=== PATIENT | female | born 2005 | race Caucasian/White ===

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

== ENCOUNTER 2024-04-18 03:36 | Emergency (ER) | payer OTHER ==
[2024-04-18 04:00] VITALS: RESP 18; TEMP 98.7; O2SAT 98
[2024-04-18 04:15] LABS: Appearance Clear (Clear); Bacteria Rare /HPF (None Seen); Bilirubin Negative (Negative); Blood Negative (Negative); Epithelial Cells Rare /HPF (None Seen); Glucose, Urine Negative (Negative); Hyaline Casts NONE SEEN /LPF (0-2); Ketones Negative (Negative); Leukocyte Esterase Negative (Negative); Nitrite Negative (Negative); Ph 6.5 (4.6-8.0); Protein,Urine Dip Negative (Negative); RBC 0-2 /HPF (0-5)
[2024-04-18 04:16] LABS: ADD URINE CULTURE? NO (NO)
--- NOTE | 2024-04-18 04:23 | ERPHSYRPT ---
- History of Present Illness Time Seen by Provider: 04/18/24 04:15 Source: patient Exam Limitations: no limitations Patient Subjective Stated Complaint: low intermittent abd cramping with vomiting, pt states that she is having some vaginal spotting that started yesterday, pt states she is on the depo shot and is late to administer it. pt has hx of 3 miscarriages. Triage Nursing Assessment: pt ambulatory to bed by self, pt alert and oriented x3, skin pwd, pt c/o low intermittent abd cramping with some vomiting, pt c/o some vaginal spotting that started yesterday, unk on last BM, pt states she vomited once yesterday and twice the day before, pt has hx of eating disorder and 3 miscarriages. Physician History: The patient, with a history of eating disorder and on Depo-Provera, presents with a week-long history of gastrointestinal symptoms and vaginal spotting. They report an inability to eat, accompanied by vomiting. Concurrently, they have been experiencing abdominal pain, described as similar to contractions but less severe. The patient also reports missing a Depo-Provera shot and has been spotting since. Their last menstrual period was approximately four months ago, which lasted two weeks, attributed to a late Depo-Provera shot. The last Depo-Provera shot was received on December 29. In an attempt to manage their eating difficulties, the patient has been taking Famotidine, which they feel is weak. They express a desire for a stronger medication to help with their eating difficulties. Timing/Duration: yesterday Severity: mild Modifying Factors: Improves With: nothing. Worsens With: eating Associated Symptoms: nausea, vomiting, abdominal pain, heartburn, loss of appetite, No shortness of breath, No diaphoresis, No cough, No chest pain, No fever, No headaches, No malaise Allergies/Adverse Reactions: No Known Drug Allergies Allergy (Verified 04/18/24 03:49) Home Medications: Famotidine [Pepcid] 40 mg PO DAILY 04/18/24 [History] Medroxyprogesterone Acetate 150 mg SQ UD 04/18/24 [History] Hx Tetanus, Diphtheria Vaccination/Date Given: Yes Hx Influenza Vaccination/Date Given: No Hx Pneumococcal Vaccination/Date Given: No Travel Risk - International Travel Have you traveled outside of the country in past 3 weeks: No - Emerging Infectious Disease Are you exhibiting symptoms associated with any current EIDs: Yes Symptoms: Abdominal Pain, Vomitting - Review of Systems All Other Systems: Reviewed and Negative - Past Medical History Pertinent Past Medical History: Yes Neurological History: Migraines ENT History: No Pertinent History Cardiac History: No Pertinent History Respiratory History: No Pertinent History Endocrine Medical History: No Pertinent History Musculoskeletal History: No Pertinent History GI Medical History: No Pertinent History History: No Pertinent History Psycho-Social History: Eating Disorders Female Reproductive Disorders: No Pertinent History Other Medical History: 3 miscarriages - Past Surgical History Past Surgical History: No Neuro Surgical History: No Pertinent History Cardiac: No Pertinent History Respiratory: No Pertinent History Gastrointestinal: No Pertinent History Genitourinary: No Pertinent History Musculoskeletal: No Pertinent History Female Surgical History: No Pertinent History Significant Family History: no pertinent family hx - Female History Hx Last Menstrual Period: unk Hx Now: No - Social History Smoking Status: Never smoker Exposure to second hand smoke: No Drug Use: none Patient Lives Alone: No - Social Determinants of Health Will the patient participate in the screening: Yes Do you worry about a steady place to live?: No Do you have any problems with any of the following?: No known problems In the past 12 months,have you had to go without utilities?: No Transportation Issues: No Has anyone in your support network made you feel unsafe?: No Have you or anyone in your house had to go without enough: No - Nursing Vital Signs Nursing Vital Signs: Initial Vital Signs Temperature 98.7 F 04/18/24 03:51 Pulse Rate 92 H 04/18/24 03:51 Respiratory Rate 18 04/18/24 03:51 Blood Pressure 119/79 04/18/24 03:51 O2 Sat by Pulse Oximetry 98 04/18/24 03:51 Pain Scale Pain Intensity 5 - Physical Exam General Appearance: no apparent distress, thin Eye Exam: eyes nml inspection Ears, Nose, Throat Exam: normal ENT inspection Neck Exam: normal inspection, supple, full range of motion Respiratory Exam: airway intact, No respiratory distress Cardiovascular Exam: regular rate/rhythm, normal heart sounds, capillary refill <2 sec, No edema Gastrointestinal/Abdomen Exam: soft, normal bowel sounds, No tenderness, No distention, No mass, No guarding, No rebound Back Exam: normal inspection, No CVA tenderness Neurologic Exam: alert, oriented x 3, cooperative Skin Exam: normal color, warm, dry SpO2 Interpretation: normal SpO2: 98 O2 Delivery: Room Air - Course Nursing assessment & vital signs reviewed: Yes Ordered Tests: Active Orders 24 hr Category Date Time Status HCG QUALITATIVE, URINE Stat Lab 04/18/24 03:45 Completed UA W/RFX UR CULTURE Stat Lab 04/18/24 04:07 Completed Medication Summary Discontinued Medications Generic Name Dose Route Start Last Admin Trade Name Michelle PRN Reason Stop Dose Admin Acetaminophen 975 mg 04/18/24 04:16 04/18/24 04:26 Acetaminophen 325 Mg Tablet PO 04/18/24 04:17 975 mg STAT STA Administration Acetaminophen Confirm 04/18/24 04:26 Acetaminophen 325 Mg Tablet Administered 04/18/24 04:27 Dose 975 mg .ROUTE .STK-MED ONE Pantoprazole Sodium 40 mg 04/18/24 04:15 04/18/24 04:26 Protonix (Pantoprazole) 40 Mg Tablet PO 04/18/24 04:16 40 mg STAT ONE Administration Pantoprazole Sodium Confirm 04/18/24 04:25 Protonix (Pantoprazole) 40 Mg Tablet Administered 04/18/24 04:26 Dose 40 mg .ROUTE .STK-MED ONE Lab/Rad Data: Laboratory Results 04/18/24 04/18/24 Range/Units 04:07 03:45 Urine Color Yellow (Yellow) Urine Appearance Clear (Clear) Urine pH 6.5 (4.6-8.0) Ur Specific [place] 1.020 (1.005-1.030) Urine Protein Negative (Negative) Urine Glucose (UA) Negative (Negative) mg/dL Urine Ketones Negative (Negative) Urine Blood Negative (Negative) Urine Nitrite Negative (Negative) Urine Bilirubin Negative (Negative) Urine Urobilinogen 1.0 A (0.2) mg/dL Ur Leukocyte Esterase Negative (Negative) U Hyaline Cast (Auto) NONE SEEN (0-2) /LPF Urine Microscopic RBC 0-2 (0-5) /HPF Urine Microscopic WBC 3-5 (0-5) /HPF Ur Epithelial Cells Rare (None Seen) /HPF Urine Bacteria Rare A (None Seen) /HPF Urine Culture Reflexed NO (NO) Urine HCG, Qual NEGATIVE (NEGATIVE) - Progress Progress: improved Progress Note: Patient refused blood draw and imaging. UA neg for UTI. Urine neg. Given Tylenol and Protonix which improved her cramping and nausea. Will send home with script for Protonix 40mg QD. Follow up with PCP. Counseled pt/family regarding: lab results, diagnosis, need for follow-up Medical Desision Making - Diagnostic Testing Diagnostic test were ordered, analyzed, and reviewed by me: Yes Radiological Interpretation: Interpreted by me - Risk of complications The pt has a mod risk of morbidity or mortality based on: Need for prescription drug management - Departure Departure Disposition: Home Clinical Impression: Spotting, Abdominal cramping, GERD (gastroesophageal reflux disease) Condition: Good Critical Care Time: No Referrals: STU ROBERTS [Primary Care Provider] - Follow up/PCP as directed Instructions: Acid reflux and GERD in adults Prescriptions: Omeprazole 40 mg PO DAILY 30 Days #30 cap
[2024-04-18] MEDS ORDERED: Protonix 40MG Tablet ONE (04:25)
[2024-04-18] MEDS: TYLENOL 325 MG PO STA (04:26)
[2024-04-18] MEDS: Protonix 40MG Tablet PO ONE (04:26)
[2024-04-18] MEDS ORDERED: TYLENOL 325 MG ONE (04:26)
[2024-04-18 04:29] LABS: HCG URINE TEST NEGATIVE (NEGATIVE)
[2024-04-18 04:42] VITALS: BP 112/66; PULSE 65
== END 2024-04-18 05:00 | disposition home or self-care (01) ==
LOC: ED 03:36
DX: N92.1 Excessive and frequent menstruation with irregular cycle (principal); R10.9 Unspecified abdominal pain; K21.9 Gastro-esophageal reflux disease without esophagitis; R11.2 Nausea with vomiting, unspecified; Z79.899 Other long term (current) drug therapy
CPT/HCPCS: 81001; 81025; 99283; A9270-GY

== ENCOUNTER 2024-07-16 18:37 | Emergency (ER) | payer OTHER | END 2024-07-16 19:09 | disposition left against medical advice (07) | LOC: ED 18:37 | DX: Z53.21 Procedure and treatment not carried out due to patient leaving prior to being seen by health care provider (principal) ==

== ENCOUNTER 2024-10-20 00:35 | Emergency (ER) | payer OTHER ==
[2024-10-20 00:50] VITALS: TEMP 97.3
[2024-10-20 00:53] LABS: HCG URINE TEST NEGATIVE (NEGATIVE)
--- NOTE | 2024-10-20 01:12 | ERPHSYRPT ---
- History of Present Illness Time Seen by Provider: 10/20/24 00:55 Source: patient Exam Limitations: no limitations Patient Subjective Stated Complaint: c/o possible Triage Nursing Assessment: patient brought self to ED with c/o possible . patient stated that she is not on any control and haven't had a period since October of 2021. patient took 4 at home tests and has 2 positive, 1 negative, and 1 invalid test results. vitals wnl, skin w/n/d, gait steady, pt doesn't appear to be in any distress at this time. Physician History: Patient is a 18-year-old female presents to our ED for evaluation of . Patient states that she has missed several periods. Patient concerned with . Patient took several home test. 2 were positive to are negative. Patient requesting a test. She otherwise feels well. Patient denies pain. No nausea no vomiting no diarrhea no rash no vaginal discharge no pelvic pain. Patient simply wants to know whether or not she is . Patient denies urinary symptomology. No dysuria no hematuria no urinary frequency or urgency. No back pain. No fever. Portions of this note were created with voice recognition technology. There may be grammatical, spelling, punctuation or sound alike errors Timing/Duration: today Severity: moderate Modifying Factors: Improves With: nothing Associated Symptoms: denies symptoms Allergies/Adverse Reactions: No Known Drug Allergies Allergy (Verified 10/20/24 00:52) Home Medications: No Reportable Medications [No Reported Medications] 10/20/24 [History] Hx Tetanus, Diphtheria Vaccination/Date Given: No Hx Influenza Vaccination/Date Given: No Hx Pneumococcal Vaccination/Date Given: No Travel Risk - International Travel Have you traveled outside of the country in past 3 weeks: No - Emerging Infectious Disease Are you exhibiting symptoms associated with any current EIDs: No Symptoms: Abdominal Pain, Vomitting - Review of Systems Constitutional: No Symptoms, No Fever, No Chills Eyes: No Symptoms Ears, Nose, & Throat: No Symptoms Respiratory: No Symptoms, No Cough, No Dyspnea Cardiac: No Symptoms, No Chest Pain, No Edema, No Syncope Abdominal/Gastrointestinal: No Symptoms, No Abdominal Pain, No Nausea, No Vomiting, No Diarrhea Genitourinary Symptoms: No Symptoms, No Dysuria Musculoskeletal: No Symptoms, No Back Pain, No Neck Pain Skin: No Symptoms, No Rash Neurological: No Symptoms, No Dizziness, No Focal Weakness, No Sensory Changes Psychological: No Symptoms Endocrine: No Symptoms Hematologic/Lymphatic: No Symptoms Immunological/Allergic: No Symptoms All Other Systems: Reviewed and Negative - Past Medical History Pertinent Past Medical History: Yes Neurological History: Migraines ENT History: No Pertinent History Cardiac History: No Pertinent History Respiratory History: No Pertinent History Endocrine Medical History: No Pertinent History Musculoskeletal History: No Pertinent History GI Medical History: No Pertinent History History: No Pertinent History Psycho-Social History: Eating Disorders Female Reproductive Disorders: No Pertinent History Other Medical History: 3 miscarriages - Past Surgical History Past Surgical History: No Neuro Surgical History: No Pertinent History Cardiac: No Pertinent History Respiratory: No Pertinent History Gastrointestinal: No Pertinent History Genitourinary: No Pertinent History Musculoskeletal: No Pertinent History Female Surgical History: No Pertinent History Significant Family History: no pertinent family hx - Female History Hx Last Menstrual Period: 2021 Hx Now: (unknown) - Social History Smoking Status: Never smoker Exposure to second hand smoke: No Drug Use: none Patient Lives Alone: No - Social Determinants of Health Will the patient participate in the screening: Yes Do you worry about a steady place to live?: No Do you have any problems with any of the following?: No known problems In the past 12 months,have you had to go without utilities?: No Transportation Issues: No Has anyone in your support network made you feel unsafe?: No Have you or anyone in your house had to go without enough: No - Nursing Vital Signs Nursing Vital Signs: Initial Vital Signs Temperature 97.3 F 10/20/24 00:43 Pulse Rate 98 H 10/20/24 00:43 Respiratory Rate 19 10/20/24 00:43 Blood Pressure 131/76 10/20/24 00:43 O2 Sat by Pulse Oximetry 100 10/20/24 00:43 Pain Scale Pain Intensity 0 - Physical Exam General Appearance: no apparent distress, alert Eye Exam: PERRL/EOMI, eyes nml inspection Ears, Nose, Throat Exam: normal ENT inspection, TMs normal, pharynx normal, moist mucous membranes Neck Exam: normal inspection, non-tender, supple, full range of motion Respiratory Exam: normal breath sounds, lungs clear, airway intact, No respiratory distress Cardiovascular Exam: regular rate/rhythm, normal heart sounds, normal peripheral pulses Gastrointestinal/Abdomen Exam: soft, normal bowel sounds, No tenderness, No mass Back Exam: normal inspection, normal range of motion, No CVA tenderness, No vertebral tenderness Extremity Exam: normal inspection, normal range of motion, pelvis stable Neurologic Exam: alert, oriented x 3, cooperative, normal mood/affect, sensation nml, No motor deficits Skin Exam: normal color, warm, dry, No rash Lymphatic Exam: No adenopathy SpO2 Interpretation: normal SpO2: 100 O2 Delivery: Room Air - Course Nursing assessment & vital signs reviewed: Yes Ordered Tests: Active Orders 24 hr Category Date Time Status HCG QUALITATIVE, URINE Stat Lab 10/20/24 00:49 Completed Lab/Rad Data: Laboratory Results 10/20/24 Range/Units 00:49 Urine HCG, Qual NEGATIVE (NEGATIVE) - Progress Progress: improved Progress Note: 18-year-old female presents to our ED for test. Patient otherwise well. Urine negative. Will discharge home. Patient agrees to follow-up with her primary care doctor within 48 hours for reevaluation. Portions of this note were created with voice recognition technology. There may be grammatical, spelling, punctuation or sound alike errors Complexity of problem addressed is moderate acute complicated no critical care time complex of data reviewed and analyzed is moderate. Test ordered test revie wed results analyzed and correlated clinically with history and physical exam. Risk of complication and or risk of morbidity/mortality of patient management is low. Vital stable. Time spent to discharge patient is approximately 10 minutes. Plan of care established for shared decision making. No social determinants of health present to impede follow-up. Portions of this note were created with voice recognition technology. There may be grammatical, spelling, punctuation or sound alike errors 10/20/24 01:13 Counseled pt/family regarding: lab results, diagnosis, need for follow-up - Departure Departure Disposition: Home Clinical Impression: screening Condition: Stable Critical Care Time: No Referrals: XOCHITL WAYNE NP [Primary Care Provider] - Follow up/PCP as directed Additional Instructions: Discharge/Care Plan JOANNBANDAR MILLS was seen on 10/20/24 in the Emergency Room. The patient was counseled regarding Diagnosis,Lab results, Imaging studies, need for follow up and when to return to the Emergency Room. Prescriptions given: Discharge Note I have spoken with the patient and/or caregivers. I have explained the patient's condition, diagnosis and treatment plan based on the information available to me at this time. I have answered the patient's and/or caregiver's questions and addressed any concerns. The patient and/or caregivers have as good understanding of the patient's diagnosis, condition and treatment plan as can be expected at this point. The vital signs have been stable. The patient's condition is stable and appropriate for discharge from the emergency department. The patient will pursue further outpatient evaluation with the primary care physician or other designated or consulting physician as outlined in the discharge instructions. The patient and/or caregivers are agreeable to this plan of care and follow-up instructions have been explained in detail. The patient and/or caregivers have received these instruction. The patient/and or caregivers are aware that any significant change in condition or worsening of symptoms should prompt an immediate return to this or the closest emergency department or call 911.
[2024-10-20 01:25] VITALS: BP 119/73; PULSE 75; RESP 16; O2SAT 98
== END 2024-10-20 01:28 | disposition home or self-care (01) ==
LOC: ED 00:35
DX: Z32.02 Encounter for pregnancy test, result negative (principal)
CPT/HCPCS: 81025; 99282

== ENCOUNTER 2025-02-11 19:50 | Emergency (ER) | payer OTHER ==
[2025-02-11 20:06] VITALS: TEMP 98.6
[2025-02-11] MEDS ORDERED: HYDROCODONE-ACETAMIN 2.5-108/5 ML SOLUTION ONE (20:06)
[2025-02-11] MEDS: HYDROCODONE-ACETAMIN 2.5-108/5 ML SOLUTION PO STA (20:11)
[2025-02-11 20:13] LABS: Absolute Neutrophil Ct (ANC) 5.99 x10^3/uL (1.56-6.13); BASOPHIL % 0.6 % (0.1-1.2); Basophil (Absolute #) 0.05 x10^3/uL (0.01-0.08); Eosinophil % 1.6 % (0.7-5.8); Eosinophil (Absolute #) 0.13 x10^3/uL (0.04-0.36); Hematocrit 40.3 % (34.1-44.9); Hemoglobin 12.9 g/dL (11.2-15.7); IMMATURE GRAN # 0.02 x10^3u/L (0.001-0.031); IMMATURE GRAN % 0.2 % (0.001-0.429); Lymphocyte (Absolute #) 1.27 x10^3/uL (1.18-3.74); Lymphocytes % 15.7 % (19.3-51.7); Mean Cell Volume 90.6 fL (79.4-94.8); Mean Platelet Volume 8.7 fL (9.4-12.3); Monocyte (Absolute #) 0.62 x10^3/uL (0.24-0.86); Monocytes % 7.7 % (4.7-12.5); Neutrophil % 74.2 % (34.0-71.1); Platelet Count 348 x10^3/uL (182-369); Red Blood Count 4.45 x10^6/uL (3.93-5.22); Red Cell Distribution Width 12.9 % (11.7-14.4); White Blood Count 8.1 x10^3/uL (3.98-10.04)
[2025-02-11 20:14] VITALS: O2SAT 98
[2025-02-11 20:34] LABS: HCG SERUM TEST NEGATIVE (NEGATIVE)
[2025-02-11 20:36] LABS: ALBUMIN 4.5 g/dL (3.5-5.0); ANION GAP 17.4 MEQ/L (5-15); BILIRUBIN,TOTAL 0.7 mg/dL (0.2-1.3); Calcium 9.6 mg/dL (8.4-10.2); Creatinine 1 0.58 mg/dL (0.52-1.04); EST GLOMERULAR FILTRATION RATE 132.8 ML/MIN; Potassium 4.3 mmol/L (3.5-5.1); Total Protein 8.2 g/dL (6.3-8.2)
[2025-02-11] MEDS ORDERED: Sodium Chloride 0.9% 1000 ML 1,000 ML ONE (20:36)
[2025-02-11] MEDS: Sodium Chloride 0.9% 1000 ML 1,000 ML IV STA (20:39)
[2025-02-11 21:02] VITALS: RESP 15
[2025-02-11] MEDS ORDERED: Zofran 4 MG/2 ML VIAL ONE (21:18)
[2025-02-11] MEDS: Zofran 4 MG/2 ML VIAL IV ONE (21:19)
[2025-02-11] MEDS ORDERED: Augmentin 875-125 Tablet ONE (22:24)
[2025-02-11] MEDS: Augmentin 875-125 Tablet PO ONE (22:26)
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
[2025-02-11 22:32] VITALS: BP 125/83; PULSE 63
[2025-02-11] MEDS ORDERED: XYLOCAINE VISCOUS 2% 15 ML CUP ONE (22:44)
[2025-02-11] MEDS ORDERED: CETACAINE SPRAY ONE (22:44)
[2025-02-11] MEDS ORDERED: MAALOX ES 30 ML UNIT DOSE ONE (22:45)
[2025-02-11] MEDS: CETACAINE SPRAY MM ONE (22:56)
[2025-02-11] MEDS: MAALOX ES 30 ML UNIT DOSE MM ONE (22:57)
[2025-02-11] MEDS: XYLOCAINE VISCOUS 2% 15 ML CUP MM ONE (22:57)
--- NOTE | 2025-02-12 08:37 | XRAY ---
Indication: Left submandibular abscess. Multiple contiguous images obtained through the facial bones without contrast. Comparison: None Beam artifact from left dental amalgams and tongue piercing. Several submandibular and cervical lymphadenopathy, left greater than right. Largest left submandibular measuring at least 1.4 x 3.9 semirigid greatest axial dimension. No focal walled off fluid collection, abscess, or soft tissue emphysema. Enlarged palatine tonsils also left greater than right narrows oropharynx. Remaining supra and infraglottic airway widely patent. Normal epiglottis. No acute fracture, suspicious bony lesions, or osseous destructive process. Visualized base of brain and cervical spine are unremarkable. Impression: Beam artifact. Scattered submandibular/cervical lymphadenopathy, left greater than right presumed reactive. Also enlarged palatine tonsils. Correlate clinically.
== END 2025-02-11 23:00 | disposition home or self-care (01) ==
LOC: ED 19:50
DX: S00.83XA Contusion of other part of head, initial encounter (principal); W50.0XXA Accidental hit or strike by another person, initial encounter; Y92.511 Restaurant or cafe as the place of occurrence of the external cause; K12.2 Cellulitis and abscess of mouth; Z79.899 Other long term (current) drug therapy
CPT/HCPCS: 36415; 70486; 80053; 83605; 84703; 85025; 96361; 96374; 99284; J2405; A9270-GY